=== PATIENT | female | born 1990 | race Caucasian/White ===

== ENCOUNTER 2016-11-17 15:59 | Emergency (ER) ==
--- NOTE | 2016-11-17 17:11 | PROVIDER DOCUMENTATION ---
[facility]-EE General - General Source: patient - History of Present Illness-EENT General EENT Location: reports: ear (L) Quality of Pain: reports: aching Severity: reports: mild Onset/Duration: reports: this morning Timing: reports: still present Prearrival Treatment: Initiated no prearrival treatment Associated Symptoms: reports: denies symptoms Locality of Occurance: Home Similar Symptoms Previously?: Yes Recently seen or treated by another doctor?: No - Ears Ear Problem Symptoms: reports: earache (L) Ear Problem Context: reports: none <Lisa Delatorre - Last Filed: 11/17/16 17:08> <Joe Harmon - Last Filed: 11/17/16 17:15> - General Chief Complaint: Earache Stated Complaint: EARACHE Time Seen by Provider: 11/17/16 17:08 Allergies/Adverse Reactions: Patient Allergies Allergy/AdvReac Type Severity Reaction Status Date / Time No Known Allergies Allergy Verified 09/05/16 11:29 Home Medications: Home Medication List Medication Instructions Recorded Confirmed Last Taken Type Loratadine [Claritin] 10 mg PO DAILY #30 tablet 09/05/16 Unknown Rx Naproxen 500 mg PO BID PRN PRN #60 tablet 09/05/16 Unknown Rx Cephalexin [Keflex] 500 mg PO BID #20 capsule 11/17/16 Unknown Rx Mupirocin Cream [Bactroban Cream] 1 applicatn TOP TID #1 tube 11/17/16 Unknown Rx - History of Present Illness-EENT General Nature of Presenting Problem: Pt is 25 y/o F presents to the ED with L earache. Pt states the earache started this am. Pt denies F. Pt denies injury or trauma. (Lisa Delatorre) Review of Systems - Adult - REVIEW OF SYSTEMS - ADULT Constitutional: reports: no symptoms reported Eyes: reports: no symptoms reported Ears, Nose, Mouth & Throat: reports: ear pain (L). denies: nose pain, throat pain Cardiovascular: reports: no symptoms reported Respiratory: reports: no symptoms reported Gastrointestinal: reports: no symptoms reported Genitourinary: reports: no symptoms reported Musculoskeletal: reports: no symptoms reported Integumentary: reports: no symptoms reported Neurological: reports: no symptoms reported Psychiatric: reports: no symptoms reported Endocrine: reports: no symptoms reported Hematologic/Lymphatic: reports: no symptoms reported Allergic/Immunologic: reports: no symptoms reported All Other Systems: Reviewed and Negative <Lisa Delatorre - Last Filed: 11/17/16 17:08> Past History - Adult - PAST MEDICAL HISTORY-ADULT Review of Records: reports: Nursing Assessment Review, Medications Reviewed, Social history reviewed & non-contributory. Major Childhood Illnesses: reports: denies history Cardiovascular: reports: HTN Respiratory: reports: denies history Gastrointestinal: reports: denies history Obstetrical/Gynecological: reports: denies history Genitourinary: reports: denies history Musculoskeletal: reports: denies history Neurological: reports: denies history Psychiatric: reports: anxiety Endocrine/Immune: reports: denies history Other Conditions: reports: denies history - PRIOR SURGERIES/PROCEDURES Surgical/Procedure History: reports: - PRIOR HOSPITALIZATIONS Prior Hospitalizations: reports: none - IMMUNIZATION STATUS Childhood Immunizations: See Nurse Assessment Flu Vaccine: See Nurse Assessment - FAMILY HISTORY Family History: reviewed, not pertinent - SOCIAL HISTORY Smoking: denies Substance Use: denies Living Situation: family <Lisa Delatorre - Last Filed: 11/17/16 17:08> Physical Exam- EENT - Physical Exam EENT Initial Vital Signs Reviewed: Yes General Appearance: appears well, alert, no apparent distress Eye Exam: bilateral eye: normal inspection, PERRL, EOMI Ear Exam: bilateral ear: auricle normal, canal normal, TM normal Nasal Exam: normal inspection Throat Exam: normal mouth inspection, pharynx normal Neck: non-tender, full range of motion, supple, normal inspection Respiratory: chest non-tender, lungs clear, normal breath sounds, no pleuratic chest pain, no respiratory distress, no accessory muscle use Cardiovascular: normal peripheral pulses, regular rate, rhythm, no edema, no gallop, no JVD, no murmur Abdominal Exam: normal bowel sounds, non tender, soft, no organomegaly, no pulsatile mass Lymphatic: no adenopathy Back Exam: normal inspection, no CVA tenderness, no vertebral tenderness Extremity: normal range of motion, non-tender, normal gait, normal inspection, no pedal edema, no calf tenderness, normal capillary refill Integumentary: normal color, normal turgor, warm/dry Neurologic: grossly normal Psych/Mental Status: normal mood/affect, oriented x 3 <Lisa Delatorre - Last Filed: 11/17/16 17:08> Progress <Lisa Delatorre - Last Filed: 11/17/16 17:08> <Joe Harmon - Last Filed: 11/17/16 17:15> - PLAN OF CARE/RESULTS Progress/Plan/Lab Results: Vital Signs - 24 hr 11/17/16 16:14 Temperature 99.3 F Pulse Rate 88 Respiratory 18 Rate Blood Pressure 133/75 O2 Sat by Pulse 99 Oximetry (Lisa Delatorre) Departure <Lisa Delatorre - Last Filed: 11/17/16 17:08> - Departure Time of Disposition Order: 17:15 Certified Medical Emergency: Emergent <Joe Harmon - Last Filed: 11/17/16 17:15> - Departure DIAGNOSIS: Ear pain, left Disposition: HOME 01 Condition: Stable Additional Instructions: ED Follow Up Instructions: You have been treated by a care provider in the Emergency Department. These instructions are being provided to you so you can have an understanding of how to care for yourself upon discharge. Upon discharge from the Emergency Department, you are responsible for making arrangements for follow-up care by a physician of your choice. Take all prescribed medications as directed. Return to the Emergency Department immediately for any new or worsening symptoms. You may call the Physician Referral phone number at [phone] to obtain a list of Physicians who are taking new patients. Prescriptions: Mupirocin Cream [Bactroban Cream] 1 applicatn TOP TID #1 tube Cephalexin [Keflex] 500 mg PO BID #20 capsule Referrals: None,PCP [Primary Care Provider] - Attestation - Scribe Verification/Attestation Scribe:: Lisa Delatorre Acting as Scribe for:: Joe Harmon Scribe documention review:: This chart was documented by a scribe and accurately reflects the service the provider performed and the decisions made by the provider. <Lisa Delatorre - Last Filed: 11/17/16 17:08> Physician Attestation
--- NOTE | 2016-11-17 17:15 | PROVIDER DOCUMENTATION ---
HPI-EENT General - General Chief Complaint: Earache Stated Complaint: EARACHE Time Seen by Provider: 11/17/16 17:10 Allergies/Adverse Reactions: Patient Allergies Allergy/AdvReac Type Severity Reaction Status Date / Time No Known Allergies Allergy Verified 09/05/16 11:29 Home Medications: Home Medication List Medication Instructions Recorded Confirmed Last Taken Type Loratadine [Claritin] 10 mg PO DAILY #30 tablet 09/05/16 Unknown Rx Naproxen 500 mg PO BID PRN PRN #60 tablet 09/05/16 Unknown Rx Cephalexin [Keflex] 500 mg PO BID #20 capsule 11/17/16 Unknown Rx Mupirocin Cream [Bactroban Cream] 1 applicatn TOP TID #1 tube 11/17/16 Unknown Rx Past History - Adult - PAST MEDICAL HISTORY-ADULT Major Childhood Illnesses: reports: denies history Cardiovascular: reports: HTN Respiratory: reports: denies history Gastrointestinal: reports: denies history Obstetrical/Gynecological: reports: denies history Genitourinary: reports: denies history Musculoskeletal: reports: denies history Neurological: reports: denies history Endocrine/Immune: reports: denies history Other Conditions: reports: denies history - PRIOR SURGERIES/PROCEDURES Surgical/Procedure History: reports: - PRIOR HOSPITALIZATIONS Prior Hospitalizations: reports: none - IMMUNIZATION STATUS Childhood Immunizations: See Nurse Assessment Flu Vaccine: See Nurse Assessment - FAMILY HISTORY Family History: reviewed, not pertinent Departure - Departure Time of Disposition Order: 17:13 DIAGNOSIS: Ear pain, left Disposition: HOME 01 Certified Medical Emergency: Emergent Condition: Stable Additional Instructions: ED Follow Up Instructions: You have been treated by a care provider in the Emergency Department. These instructions are being provided to you so you can have an understanding of how to care for yourself upon discharge. Upon discharge from the Emergency Department, you are responsible for making arrangements for follow-up care by a physician of your choice. Take all prescribed medications as directed. Return to the Emergency Department immediately for any new or worsening symptoms. You may call the Physician Referral phone number at [phone] to obtain a list of Physicians who are taking new patients. Prescriptions: Mupirocin Cream [Bactroban Cream] 1 applicatn TOP TID #1 tube Cephalexin [Keflex] 500 mg PO BID #20 capsule
[2016-11-17 17:19] VITALS: BP 114/75
== END 2016-11-17 17:21 | disposition home or self-care (01) ==
LOC: P.ED 15:59
DX: H92.02 Otalgia, left ear (principal); I10 Essential (primary) hypertension
CPT/HCPCS: 99282